=== PATIENT | female | born 1995 | race Two or more races ===

== ENCOUNTER 2024-03-05 08:52 | Outpatient (AMB) | payer OTHER, SELFPAY ==
--- NOTE | 2024-03-05 08:53 | A.OFFPC_ITS ---
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 Deicer Element Winder Machine Name: [id number] Accompanied by: Self / Same As Patient Allergies No Known Allergies Allergy (Verified 03/05/24 09:05) Medication List - Last Reconciled 03/05/24 by AMBERLY Concepcion No Known Home Meds Tobacco use date assessed: 03/05/24 Dental Screening Dental Screen Date: 03/05/24 Did you have a dental visit in the last 12 months?: No Did you have a dental problem in the last 6 months where you did not have access to dental care?: No Was dental information given to patient?: No HPI establish care HPI Details Previous PCP:[place] Last visit:October PE: October in [place], she had an appt scheduled November 23 in there, but she came here Specialist: n/a OBGYN: needs referral Past medical history: goiter 2021 Medications: n/a Family HX: n/a The patient is a 28-year-old female that is presenting to establish care She denies any significant past medical history Reports that she is here because of the swelling in her neck Problem: Goiter:Patient reports that the swelling in her neck started in 2021 after giving to her daughter She denies any discomfort to the swelling in her neck but reports that when she lays down it impacts her breathing and causes her to have headaches Denies difficulty swallowing or change in her voice will order a thyroid ultrasound brandi and an endocrine referral urgently Will order blood works as well follow up in 1 month: to address goiter/endocrine-to see what their recommendations are [facility] Social History Housing: Apartment Patient Tobacco Use Status: Never used Tobacco e-Cigarette/Vaping Use: Never Used service: No Current occupational status: unemployed Current occupational exposures/hazards: No Cognitive needs: No Hearing needs: No Vision needs: No Questionnaire PHQ-9 Over the last 2 weeks, how often have you been bothered by any of the following problems? 1. Little interest or pleasure in doing things: not at all 2. Feeling down, depressed, or hopeless: not at all 3. Trouble falling or staying asleep, or sleeping too much: not at all 4. Feeling tired or having little energy: not at all 5. Poor appetite or overeating: not at all 6. Feeling bad about yourself - or that you are a failure or have let yourself or your family down: not at all 7. Trouble concentrating on things, such as reading the newspaper or watching television: not at all 8. Moving or speaking so slowly that other people could have noticed. Or the opposite - being so fidgety or restless that you have been moving around a lot more than usual: not at all 9. Thoughts that you would be better off or of hurting yourself in some way: not at all Total score: 0 Depression Screening Interpretation: Negative Depression Screening Done: Yes 40800 - PHQ-9 Billing: Yes Source: Developed by Drs. Low Draper, Ann Newsome, Te Dugan and colleagues, with an educational jim from [employer]. Thrive Questionnaire Date Thrive assessed: 03/05/24 I am a: Patient What is your living situation today?: I have a steady place to live Within the past 12 months, did the food you bought not last and you didn't have the money to get more?: I choose not to answer this question Within the past 12 months, did you worry whether your food would run out before you got money to buy more?: I choose not to answer this question Do you have trouble paying for medicines?: I choose not to answer this question Do you have trouble getting transportation to medical appointments?: I choose not to answer this question Do you have trouble paying your heating and electricity bill?: I choose not to answer this question Do you have trouble taking care of your child, family member or friend?: I choose not to answer this question Do you have trouble with day-to-day activities such as bathing, preparing meals, shopping, managing finances, etc.?: I choose not to answer this question Are you currently unemployed and looking for a job?: I choose not to answer this question Are you interested in more education?: I choose not to answer this question Please select the resources that you would like help with: None Currently or been in a relationship where the following occur: I choose not to answer THRIVE Score: 0 AUDIT C Alcohol Use Questionnaire (AUDIT-C) 1. How often do you have a drink containing alcohol?: Never 3. How often do you have six or more drinks on one occasion?: Never Total Score: 0 SHEILA-7 AMB Questionnaire SHEILA-7 Feeling nervous, anxious, or on edge: 0 = Not at all Not being able to stop or control worryin = Not at all Worrying too much about different things: 0 = Not at all Trouble relaxin = Not at all Being so restless that it is hard to sit still: 0 = Not at all Becoming easily annoyed or irritable: 0 = Not at all Feeling afraid as if something awful might happen: 0 = Not at all Total SHEILA-7 score (0-4 normal; 5-9 mild; 10-14 moderate; 15-21 severe): 0 Source: Developed by Drs. Low Draper, Ann Newsome, Te Dugan and colleagues, with an educational jim from [employer]. SHEILA-7 Assessment Billing SHEILA-7 Assessment Tool: SHEILA-7 Assessment 91435 Review of Systems Const Details: Denies chills, Denies fatigue, Denies fever(s), reports headache with laying down(s) and Denies weakness HEENT Denies change in vision, Denies dizziness, reports headaches when laying down (s), Denies hearing loss, Denies nasal congestion, Denies sinus pain, Denies sinus pressure and Denies sore throat Card Denies chest pain, Denies lightheadedness, Denies dyspnea and Denies other (palpitations) Resp other: + sob with laying down Denies cough, Denies dyspnea and Denies wheezing GI Denies abdominal pain, Denies melena, Denies hematochezia, Denies change in bowel habits, Denies dyspepsia and Denies nausea Denies hematuria and Denies dysuria Musc Denies abnormal gait, Denies myalgias, Denies arthralgias, Denies numbness and Denies tingling Skin/Breast Denies rash, Denies unusual bruising and Denies wounds Neuro Denies abnormal gait, Denies dizziness, Denies headache(s), Denies memory loss, Denies numbness, Denies Sensory deficit (Neuro), Denies tingling and Denies weakness Psych Denies anxiety, Denies depression and Denies memory loss Endo Denies cold intolerance, Denies fatigue, Denies heat intolerance, Denies polydipsia and Denies polyuria Malcolm/Lymph Denies easy bleeding and Denies easy bruising Aller/Immun Denies wheezing Physical exam (Primary Care) Vital Signs: Last Vital Signs Temp 97.4 F 03/05/24 08:56 Pulse 76 03/05/24 08:56 BP 100/64 03/05/24 08:56 Pulse Ox 99 03/05/24 08:56 Oxygen Delivery Method Room Air 03/05/24 08:56 BMI result Body Mass Index 34.2 Tobacco/Smoking Status: Tobacco use Status Tobacco use date assessed 03/05/24 03/05/24 09:03 Patient Tobacco Use Status Never used Tobacco 03/05/24 09:03 e-Cigarette/Vaping Use Never Used 03/05/24 09:03 PHQ-9: PHQ-9 Score PHQ-9: Total score 0 03/05/24 09:03 Depression Screening Interpretation: Negative Thrive Assessment: Date of Thrive Assessment Date Thrive assessed 03/05/24 03/05/24 09:03 Currently or been in a relationship where the following occur: I choose not to answer Const Other: General: no acute distress, well developed, alert and awake Nutritional Appearance: well nourished Orientation/consciousness: patient oriented x3 HENMT Head: Yes normocephalic and Yes atraumatic Ears: hearing grossly normal bilaterally and TM's normal bilaterally General nose exam: Normal external nose present and Normal nares present Mouth: Normal oral and palatal mucosa present and moist mucous membranes Teeth and gingiva: dentition normal Throat: Yes oropharynx normal Eyes Pupils: Equal, round and reactive pupils present and Pupil accommodation reflex normal EOM: EOMs intact bilaterally Neck Neck: Yes normal visual inspection, Yes no lymphadenopathy and Yes trachea midline Thyroid: +large goiter Carotids: no bruits Lymphatic: no lymphadenopathy noted Chest Chest palpation & inspection: normal inspection of the chest Resp Effort & Inspection: normal respiratory effort Auscultation: clear to auscultation bilaterally Cardio Rate: regular rate Rhythm: regular rhythm Heart sounds: S1 normal heart sound present, S2 normal heart sound present, no gallops, no murmurs and no rubs Bruits: no abdominal aortic bruits and no carotid bruits GI Palpation (GI): No Abdominal aortic bruit present, abdomen rounded, soft and nontender to palpation, and No Rebound tenderness present Auscultation: normal bowel sounds General: Yes no CVA tenderness Back/Spine/Pelvis Back: no CVA tenderness Cervical Spine: cervical ROM normal and No Cervical spine tenderness Thoracic/Lumbar Spine: thoraco-lumbar ROM normal, No pain with thoraco-lumbar ROM, No thoracic spinal tenderness and No lumbar spinal tenderness Skin General: warm and dry. Normal skin color. Normal skin turgor Lesions: no lesions Rashes: no rashes Trauma: no lacerations or abrasions Wounds: no wounds Nails: normal Neuro General: patient oriented x3, gait normal Cranial nerves: Yes Equal, round and reactive pupils present Cognition (Neuro): normal cognition Gait exam (Neuro): Normal gait present Motor exam (neuro): 5/5 motor strength present throughout Extrem General: Yes normal to inspection, No edema and No calf tenderness Psych Appearance: grossly normal Affect: normal affect Attitude: cooperative Thought process: Normal thought process present Coding Level of Care Code New Pt Level 4 (53699) Diagnoses Goiter E04.9 Nonintractable headache, unspecified chronicity pattern, unspecified headache type R51.9 Headache type: unspecified Headache chronicity pattern: unspecified pattern Intractability: not intractable Dyspnea, unspecified type R06.00 Dyspnea type: unspecified Additional Codes PHQ-9 - 82500 - PHQ-9 Billing: Yes ([id number]) SHEILA-7 Assessment Billing - SHEILA-7 Assessment Tool: SHEILA-7 Assessment 02676 ([id number]) Time Spent (min) 28 Assessment & Plan Assessment & Plan (1) Goiter: Code(s): E04.9 - Nontoxic goiter, unspecified Category: Medical Plan: Goiter: Reports that this has been present since 2021 after given to her daughter Reports that the swelling in her neck adds pressure to her neck while laying down. This affects her breathing in causing her to have a headache --ordered thyroid function tests and an ultrasound of the thyroid and the patient was given an urgent referral to Endocrine (2) Headache: Code(s): R51.9 - Headache, unspecified Category: Medical Qualifiers: Headache type: unspecified Headache chronicity pattern: unspecified pattern Intractability: not intractable Qualified Code(s): R51.9 - Headache, unspecified Plan: Headache when laying flat, resolves when she is sitting up encouraged the patient elevate the head with pillows when resting (3) Dyspnea: Code(s): R06.00 - Dyspnea, unspecified Category: Medical Qualifiers: Dyspnea type: unspecified Qualified Code(s): R06.00 - Dyspnea, unspecified Plan: reports difficult breathing when laying flat. The patient has a goiter than is putting pressure on her neck Encouraged to elevate her head pillows when laying down Plan The patient is a follow up in a month or sooner for any concerns Orders: Orders Vitamin D 25-OH Total Today E04.9 - Nontoxic goiter, unspecified, Z00.00 - Encounter for general adult medical examination without abnormal findings US thyroid Today E04.9 - Nontoxic goiter, unspecified, Z00.00 - Encounter for general adult medical examination without abnormal findings Complete Blood Count Auto Diff Today E04.9 - Nontoxic goiter, unspecified, Z00.00 - Encounter for general adult medical examination without abnormal findings Comprehensive Enterprise. Panel Fast Today E04.9 - Nontoxic goiter, unspecified, Z00.00 - Encounter for general adult medical examination without abnormal findings Lipid Panel Today E04.9 - Nontoxic goiter, unspecified, Z00.00 - Encounter for general adult medical examination without abnormal findings Glucose Fasting Today E04.9 - Nontoxic goiter, unspecified, Z00.00 - Encounter for general adult medical examination without abnormal findings UA CC w/rflx Micro + Cult Today E04.9 - Nontoxic goiter, unspecified, Z00.00 - Encounter for general adult medical examination without abnormal findings TSH reflex Free T4 Today E04.9 - Nontoxic goiter, unspecified, Z00.00 - Encounter for general adult medical examination without abnormal findings Free T4 (Free Thyroxine) Today E04.9 - Nontoxic goiter, unspecified, Z00.00 - Encounter for general adult medical examination without abnormal findings Referrals Endocrinology Referral E04.9 - Nontoxic goiter, unspecified 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
[2024-03-05 08:56] VITALS: BP 100/64; PULSE 76; TEMP 36.3; O2SAT 99; BMI 34.2
== END 2024-03-05 09:43 | disposition home or self-care (01) ==
DX: E04.9 Nontoxic goiter, unspecified (principal); R51.9 Headache, unspecified; R06.00 Dyspnea, unspecified

== ENCOUNTER 2024-03-05 08:52 | Outpatient (REF) | payer OTHER, SELFPAY ==
[2024-03-05 10:15] LABS: MANUAL DIFF FLAG NO
[2024-03-05 11:07] LABS: Basophils Absolute Auto 0.1 X10*3/uL (0.0-0.2); Basophils Percent Auto 1.4 % (0-2); Eosinophils Absolute Auto 0.2 X10*3/uL (0.0-0.4); Hematocrit 42.2 % (37.0-47.0); Hemoglobin 13.7 g/dl (12.0-16.0); Lymphocytes Absolute Auto 2.5 X10*3/uL (1.2-4.9); Lymphocytes Percent Auto 49.9 % (20-40); Mean Corpuscular HGB Conc 32.5 g/dl (31.0-35.0); Mean Corpuscular Hemoglobin 26.8 pg (27.0-33.0); Mean Corpuscular Volume 82.4 fL (80.0-98.0); Mean Platelet Volume 10.9 fL (9.4-12.3); Monocytes Absolute Auto 0.4 X10*3/uL (0.1-1.2); Monocytes Percent Auto 7.6 % (2-11); Neutrophils Absolute Auto 1.8 x10*3/uL (2.0-8.3); Neutrophils Percent Auto 37.1 % (45-73); Platelet Count 234 X10*3/uL (160-400); Red Blood Count 5.12 X10*6/uL (4.20-5.50); Red Cell Distribution Width 12.7 % (11.0-16.0)
[2024-03-05 11:18] LABS: Appearance Urine Cloudy; Color Urine Yellow; Glucose Urine UA Negative (Negative); Leukocyte Esterase Urine Negative (Negative); Nitrite Urine Negative (Negative); PH 6.5 (5.0-9.0); Specific Gravity - Urine 1.025 (1.005-1.025); Urine Blood Negative (Negative); Urine Ketones Negative (Negative); Urine Protein Negative (Neg-Trace)
[2024-03-05 11:49] LABS: Alanine Aminotransferase 28 U/L (0-31); Albumin Level 4.2 g/dL (3.5-5.0); Alkaline Phosphatase 65 U/L (39-117); Anion Gap 7 (12-20); Aspartate Amino Transferase 24 U/L (5-31); Bilirubin Total 0.3 mg/dL (0.0-1.0); Blood Urea Nitrogen 13 mg/dL (9-16); Calcium 9.8 mg/dL (8.4-10.2); Carbon Dioxide 28 mmol/L (22-29); Chloride 106 mmol/L (96-108); Cholesterol 124 mg/dL (<200); Estimated Glomerular Filt Rate > 60; Glucose Fasting 105 mg/dL (60-99); HDL Cholesterol 42 mg/dL (>40); LDL Cholesterol Calculated 69 mg/dL (<100); Sodium 137 mmol/L (135-145); Total Protein 7.8 g/dL (6.5-8.0); Triglycerides 69 mg/dL (<150)
[2024-03-05 11:58] LABS: Free T4 (Free Thyroxine) 0.99 ng/dL (0.71-1.85); TSH reflex Free T4 2.69 uIU/mL (0.32-4.0); Vitamin D 25-OH Total 22.9 ng/mL (>30)
== END 2024-03-05 08:53 | disposition home or self-care (01) ==
LOC: HO.LAB 08:52
DX: E04.9 Nontoxic goiter, unspecified (principal); R51.9 Headache, unspecified; R06.00 Dyspnea, unspecified; Z00.00 Encounter for general adult medical examination without abnormal findings
CPT/HCPCS: 36415; 80053; 80061; 81003; 82306; 84439; 84443; 85025; 96127; 99202

== ENCOUNTER 2024-03-21 15:48 | Outpatient (REF) | payer OTHER, SELFPAY | END 2024-03-21 15:49 | disposition home or self-care (01) | LOC: HO.US 15:48 | DX: E04.9 Nontoxic goiter, unspecified (principal) | CPT/HCPCS: 76536 ==

== ENCOUNTER → 2024-03-21 15:51 | Outpatient (BNV) | payer OTHER, SELFPAY | PROVIDERS: Visit Provider Radiology Diagnostic Radiology | DX: E04.9 Nontoxic goiter, unspecified (principal) | CPT/HCPCS: 76536 ==

== ENCOUNTER 2024-04-07 13:42 | Outpatient (AMB) | payer OTHER, SELFPAY ==
--- NOTE | 2024-04-07 14:27 | MHC.PC.OV ---
Vital Signs 04/07/24 14:28 Height 5 ft 8.11 in Weight 223 lb BMI 33.8 BP 110/70 Blood Pressure Location Lt brachial Position Sitting Pulse 87 Pulse Source Pulse Oximeter Temp 97.5 F Temp Source Temporal Artery Scan Pulse Oximetry (%) 97 Oxygen Delivery Method Room Air Intake Visit Reasons: goiter Intake Note: Patient is here to follow up on Goiter. Java Consultant Required: Yes Java Consultant Language: Maldivian Creole Java Consultant Name: Malissa ([id number]) Information Interpreted: non-clinical & clinical Environmental Web Crawler: Not Required per policy Accompanied by: Self / Same As Patient Allergies No Known Allergies Allergy (Verified 04/07/24 14:35) Medication List - Last Reconciled 04/07/24 by AMBERLY Concepcion No Known Home Meds Tobacco use date assessed: 04/07/24 Dental Screening Dental Screen Date: 03/05/24 HPI goiter HPI Details Patient is a 29-year-old patient Creole speaking female with a past medical history of goiter since 2021. 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 Grigsby was reached via [employer], and he gave the go ahead for the patient walk over to the office and make an appointment The patient reports that she has an headache since Sunday. The whole head and it causes her to have left eye pain, reports that she does not take medications, because when she goes to the pharmacy, they ask her for her papers-recommended ibuprofen, magnesium and b2 vitamins 400mg otc to the patient [facility] Surgical History History of 2 sections Social History Housing: Apartment Patient Tobacco Use Status: Never used Tobacco e-Cigarette/Vaping Use: Never Used Second Hand Smoke Exposure: No service: No Current occupational status: unemployed Current occupational exposures/hazards: No Cognitive needs: No Hearing needs: No Vision needs: No Questionnaire Thrive Questionnaire Date Thrive assessed: 03/05/24 I am a: Patient What is your living situation today?: I have a steady place to live Within the past 12 months, did the food you bought not last and you didn't have the money to get more?: I choose not to answer this question Within the past 12 months, did you worry whether your food would run out before you got money to buy more?: I choose not to answer this question Do you have trouble paying for medicines?: I choose not to answer this question Do you have trouble getting transportation to medical appointments?: I choose not to answer this question Do you have trouble paying your heating and electricity bill?: I choose not to answer this question Do you have trouble taking care of your child, family member or friend?: I choose not to answer this question Do you have trouble with day-to-day activities such as bathing, preparing meals, shopping, managing finances, etc.?: I choose not to answer this question Are you currently unemployed and looking for a job?: I choose not to answer this question Are you interested in more education?: I choose not to answer this question Please select the resources that you would like help with: None Currently or been in a relationship where the following occur: I choose not to answer THRIVE Score: 0 SHEILA-7 AMB Questionnaire SHEILA-7 Date SHEILA - 7 assessed: 03/05/24 Source: Developed by Drs. Low Draper, Ann Newsome, Te Dugan and colleagues, with an educational jim from [employer]. Review of Systems Const Details: Denies chills, Denies fatigue, Denies fever(s), + headache(reports that she has this for years) (s) and Denies weakness HEENT Denies change in vision, Denies dizziness, Denies hearing loss, Denies nasal congestion, Denies sinus pain, Denies sinus pressure and Denies sore throat Card Denies chest pain, Denies lightheadedness, Denies dyspnea and Denies other (palpitations) Resp Denies cough, Denies dyspnea and Denies wheezing GI Denies abdominal pain, Denies melena, Denies hematochezia, Denies change in bowel habits, Denies dyspepsia and Denies nausea Denies hematuria and Denies dysuria Musc Denies abnormal gait, Denies myalgias, Denies arthralgias, Denies numbness and Denies tingling Skin/Breast Denies rash, Denies unusual bruising and Denies wounds Neuro Denies abnormal gait, Denies dizziness, Denies headache(s), Denies memory loss, Denies numbness, Denies Sensory deficit (Neuro), Denies tingling and Denies weakness Psych Denies anxiety, Denies depression and Denies memory loss Endo Denies cold intolerance, Denies fatigue, Denies heat intolerance, Denies polydipsia and Denies polyuria Malcolm/Lymph Denies easy bleeding and Denies easy bruising Aller/Immun Denies wheezing Physical exam (Primary Care) Vital Signs: Last Vital Signs Temp 97.5 F 04/07/24 14:28 Pulse 87 04/07/24 14:28 BP 110/70 04/07/24 14:28 Pulse Ox 97 04/07/24 14:28 Oxygen Delivery Method Room Air 04/07/24 14:28 BMI result Body Mass Index 33.8 Tobacco/Smoking Status: Tobacco use Status Tobacco use date assessed 04/07/24 04/07/24 14:35 Patient Tobacco Use Status Never used Tobacco 04/07/24 14:35 e-Cigarette/Vaping Use Never Used 04/07/24 14:35 Thrive Assessment: Date of Thrive Assessment Date Thrive assessed 03/05/24 04/07/24 14:35 Currently or been in a relationship where the following occur: I choose not to answer Const Other: General: no acute distress, well developed, alert and awake Nutritional Appearance: well nourished Orientation/consciousness: [facility]: Yes normocephalic and Yes atraumatic Ears: hearing grossly normal bilaterally and TM's normal bilaterally General nose exam: Normal external nose present and Normal nares present Mouth: Normal oral and palatal mucosa present and moist mucous membranes Teeth and gingiva: dentition normal Throat: Yes oropharynx normal Eyes Pupils: Equal, round and reactive pupils present and Pupil accommodation reflex normal EOM: EOMs intact bilaterally Neck Neck: Yes normal visual inspection, Yes no lymphadenopathy Thyroid: large groiter Lymphatic: no lymphadenopathy noted Resp Effort & Inspection: normal respiratory effort Auscultation: clear to auscultation bilaterally Cardio Rate: regular rate Rhythm: regular rhythm Heart sounds: S1 normal heart sound present, S2 normal heart sound present, no gallops, no murmurs and no rubs GI Palpation (GI): abdomen is soft and nontender to palpation Auscultation: normal bowel sounds General: Yes no CVA tenderness Back/Spine/Pelvis Back: no CVA tenderness Cervical Spine: cervical ROM normal and No Cervical spine tenderness Thoracic/Lumbar Spine: lumbar tenderness to palpation Skin General: warm and dry. Normal skin color. Normal skin turgor Lesions: no lesions Wounds: no wounds Nails: normal Neuro General: patient oriented x3, gait normal Cranial nerves: Yes Equal, round and reactive pupils present Cognition (Neuro): normal cognition Gait exam (Neuro): Normal gait present Extrem General: Yes normal to inspection, No edema and No calf tenderness Psych Appearance: grossly normal Affect: normal affect Attitude: cooperative Thought process: Normal thought process present Results Reviewed Results Reviewed: Laboratory Tests 03/05/24 03/05/24 10:09 10:14 WBC 5.0 RBC 5.12 Hgb 13.7 Hct 42.2 Plt Count 234 Sodium 137 Potassium 4.0 Chloride 106 Carbon Dioxide 28 BUN 13 Creatinine 0.74 Estimated GFR > 60 Fasting Glucose 105 H AST 24 ALT 28 Alkaline Phosphatase 65 Triglycerides 69 Cholesterol 124 LDL Cholesterol, Calc 69 HDL Cholesterol 42 TSH 2.69 Free T4 0.99 Urine Color Yellow Urine Appearance Cloudy Urine pH 6.5 Ur Specific [place] 1.025 Urine Protein Negative Urine Glucose (UA) Negative Urine Ketones Negative Urine Blood Negative Urine Nitrite Negative Ur Leukocyte Esterase Negative Coding Level of Care Code Est Pt Level 4 (54928) Diagnoses Goiter E04.9 Nonintractable headache, unspecified chronicity pattern, unspecified headache type R51.9 Headache type: unspecified Headache chronicity pattern: unspecified pattern Intractability: not intractable Dyspnea, unspecified type R06.00 Dyspnea type: unspecified Time Spent (min) 42 Assessment & Plan Assessment & Plan (1) Goiter: Code(s): E04.9 - Nontoxic goiter, unspecified Category: Medical Plan: Goiter: Reports that this has been present since 2021 after given to her daughter Reports that the swelling in her neck adds pressure to her neck while laying down. This affects her breathing in causing her to have a headache Thyroid ultrasound ordered that showed a large goiter with 2 nodules. patient awaiting appointment with endocrinology (2) Headache: Code(s): R51.9 - Headache, unspecified Category: Medical Qualifiers: Headache type: unspecified Headache chronicity pattern: unspecified pattern Intractability: not intractable Qualified Code(s): R51.9 - Headache, unspecified Plan: Headache when laying flat, resolves when she is sitting up encouraged the patient elevate the head with pillows when resting The patient reports that the pain is across the whole head and it is causing her to have left eye pain, reports that she does not take any medications, because when she goes to the pharmacy, they ask her for her papers/identifications-recommended ibuprofen, magnesium and b2 vitamins 400mg otc to the patient (3) Dyspnea: Code(s): R06.00 - Dyspnea, unspecified Category: Medical Qualifiers: Dyspnea type: unspecified Qualified Code(s): R06.00 - Dyspnea, unspecified Plan: reports difficult breathing when laying flat. The patient has a goiter than is putting pressure on her neck Encouraged to elevate her head pillows when laying down Plan The patient is a follow up in a month or sooner for any concerns
[2024-04-07 14:28] VITALS: BP 110/70; PULSE 87; TEMP 36.4; O2SAT 97; BMI 33.8
== END 2024-04-07 15:24 | disposition home or self-care (01) ==
DX: E04.9 Nontoxic goiter, unspecified (principal); R51.9 Headache, unspecified; R06.00 Dyspnea, unspecified

== ENCOUNTER → 2024-04-07 13:42 | Outpatient (BNVA) | payer OTHER, SELFPAY | DX: E04.9 Nontoxic goiter, unspecified (principal); R51.9 Headache, unspecified; R06.00 Dyspnea, unspecified | CPT/HCPCS: 99212 ==

== ENCOUNTER 2024-05-05 13:39 | Outpatient (AMB) | payer OTHER, SELFPAY ==
[2024-05-05 13:46] VITALS: BP 80/64; PULSE 99; O2SAT 100; BMI 42.3
--- NOTE | 2024-05-05 13:46 | MHC.OFFVIS ---
Vital Signs 05/05/24 13:46 Height 5 ft 11.65 in Weight 308 lb 10.354 oz BMI 42.3 BP 80/64 L Blood Pressure Location Rt brachial Position Sitting Pulse 99 Pulse Source Pulse Oximeter Pulse Oximetry (%) 100 Intake Visit Reasons: Nontoxic goiter, unspecified Intake Note: New patient present today for Nontoxic goiter, unspecified. Manager Auto Name: [id number] Information Interpreted: non-clinical & clinical Accompanied by: Self / Same As Patient Allergies No Known Allergies Allergy (Verified 04/07/24 14:35) Medication List - Last Reconciled 05/05/24 by Kortney Wolfe MD No Known Home Meds HPI Comments Details: 29-year-old female here today for initial evaluation of large goiter. Ultrasound thyroid April 2024, I reviewed the images myself which showed right lower 1.2 cm solid, isoechoic nodule, all of the isthmus and left thyroid is taken up by large goiter. 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 thinks most of the enlargement happened over the last 5 years. Reports trouble breathing when she lays down flat. Does report choking sensation with laying flat. No changes in voice. Patient currently denies heat or cold intolerance, diarrhea or constipation, hair loss, palpitation, anxiety, weight changes, mood changes, low energy, changes in appearance of eyes or vision changes, tremors, increased diaphoresis or dry skin. ? Patient denies any history of childhood neck radiation. Denies having ever used lithium, amiodarone or biotin supplements. Patient denies any family history of thyroid cancer or thyroid disease. Physical exam General: sitting comfortably in no acute distress HEENT: normocephalic/atraumatic Neck: large goiter , pembertons sign positive Cardiac: normal heart sounds Pulm: normal breath sounds B/L, no added breath sounds Abd: not distended, no tenderness Extremities: no edema, no signs of myxedema Laboratory Tests 03/05/24 10:14 TSH 2.69 Free T4 0.99 US THYROID 04/18/24 CLINICAL INFORMATION: Nontoxic goiter COMPARISON: None available. TECHNIQUE: Linear transducer grayscale and color Doppler examination with attention to the region of the thyroid. FINDINGS: SIZE: Measurements of the thyroid lobes and nodules are given in sagittal, anteroposterior and transverse dimensions respectively. Right Thyroid Lobe: 6122.6 x 1.9 cm, volume 16 mL. Parenchyma: The gland echotexture is heterogeneous. Thyroid vascularity is hypervascular. Left Thyroid Lobe: The left lobe and isthmus is enlarged and difficult to differentiate the 2. There is diffusely heterogeneous as well. Estimated total number of nodules greater than or equal to 1 cm one: . Hedis Registered Nurse Rn nodules are described as follows: 1. Location: Right mid pole. Size: 0.5 x 0.5 x 0.6 cm, volume 0.076 mL. Nodule characteristics: Composition: Mixed cystic and solid (1). Echogenicity: Hyperechoic (1). Shape: Wider Margins: Smooth (0). Echogenic Foci: None (0). ACR TI-RADS total points: 3 ACR TI-RADS category: 3 2. Location: Right lower pole. Size: 1.2 x 1.1 x 1.0 cm, volume 0.7 mL. Nodule characteristics: Composition: Solid (2). Echogenicity: Isoechoic (1). Shape: Tolerated and wider 1). Margins: Smooth (0). Echogenic Foci: None (0). ACR TI-RADS total points: 6 ACR TI-RADS category: 4 NODES: No lymphadenopathy is seen in the tissue surrounding the thyroid gland. US/US thyroid IMPRESSION: Enlarged heterogeneous thyroid gland consistent with goiter. The left thyroid lobe and isthmus cannot be or measured but enlarged. There are nodules in the right lobe. The lower pole nodule is solid and mildly suspicious based on ACR TI-RADS category. Recommend ultrasound follow-up in one year [facility] Medical History (Updated 05/05/24 @ 13:54 by Ophelia Bah CMA) section wound seroma, Surgical History History of 2 sections Social History Housing: Apartment Patient Tobacco Use Status: Never used Tobacco e-Cigarette/Vaping Use: Never Used Second Hand Smoke Exposure: No service: No Current occupational status: unemployed Current occupational exposures/hazards: No Cognitive needs: No Hearing needs: No Vision needs: No Physical Exam Vital Signs: Last Vital Signs Pulse 99 05/05/24 13:46 BP 80/64 L 05/05/24 13:46 Pulse Ox 100 05/05/24 13:46 BMI result Body Mass Index 42.3 Assessment & Plan Assessment & Plan (1) Goiter: Code(s): E04.9 - Nontoxic goiter, unspecified Category: Medical Plan: 29-year-old female here today for initial evaluation of large goiter. Ultrasound thyroid April 2024, I reviewed the images myself which showed right lower 1.2 cm solid, isoechoic nodule, all of the isthmus and left thyroid is taken up by large goiter. She has compressive symptoms with significant choking and trouble breathing when she lays down flat. Also has positive [place] sign on exam today. She is not a very good historian, also there is a language barrier however she feels most of the enlargement happened over the last 5 years. We will refer her for surgical evaluation as given the degree of compressive symptoms in the size of her goiter this needs to come out. I will also order a CT soft tissue scan given compressive symptoms. Plan: -ordered CT soft tissue neck with contrast -placed referral for total thyroidectomy to Dr. Rohit Ly at [facility] -follow up in 3 months Plan I spent 45 minutes in reviewing the record, seeing the patient and documenting in the medical record. Orders: Orders CT soft tissue neck wo/w IVcon Today E04.9 - Nontoxic goiter, unspecified Referrals General Surgery Referral E04.9 - Nontoxic goiter, unspecified Patient Instructions: We are referring you to Dr. Rohit Ly's office from [facility] for surgical evaluation If you dont hear from anyone in 2 weeks call our office Do CT scan N ap refere w abhilash medina [facility] arturo mindyalyasyon karen. Si w sabiha barajas nan 2 hansa?n rele biwo nou an F? CT eskan? Coding Level of Care Code New Pt Level 4 (29647) Diagnoses Goiter E04.9 Time Spent (min) 45
== END 2024-05-05 14:19 | disposition home or self-care (01) ==
LOC: HO.ENCR 13:40
PROVIDERS: Visit Provider Student in an Organized Health Care Education/Training Program
DX: E04.9 Nontoxic goiter, unspecified (principal)
CPT/HCPCS: 99204

== ENCOUNTER → 2024-05-05 13:39 | Outpatient (BNVA) | payer OTHER, SELFPAY | PROVIDERS: Visit Provider Student in an Organized Health Care Education/Training Program | DX: E04.9 Nontoxic goiter, unspecified (principal) | CPT/HCPCS: 99202 ==

== ENCOUNTER 2024-05-06 13:44 | Outpatient (AMB) | payer OTHER, SELFPAY ==
[2024-05-06 14:01] VITALS: BP 114/76; PULSE 96; TEMP 37.4; O2SAT 97; BMI 31.7
--- NOTE | 2024-05-06 14:01 | A.OFFPC_ITS ---
Vital Signs 05/06/24 14:01 Height 5 ft 11 in Weight 227 lb 3.2 oz BMI 31.7 BP 114/76 Blood Pressure Location Lt brachial Position Sitting Pulse 96 Pulse Source Pulse Oximeter Temp 99.4 F Temp Source Oral Pulse Oximetry (%) 97 Oxygen Delivery Method Room Air Intake Visit Reasons: 1 month Physical Science Technician Required: Yes Physical Science Technician Language: Jen Olivia Physical Science Technician Name: Used tablet- [employer] [id number] Accompanied by: Self / Same As Patient Allergies No Known Allergies Allergy (Verified 05/06/24 14:28) Medication List - Last Reconciled 05/06/24 by AMBERLY Concepcion No Known Home Meds Tobacco use date assessed: 05/06/24 Dental Screening Dental Screen Date: 05/06/24 Did you have a dental visit in the last 12 months?: No Did you have a dental problem in the last 6 months where you did not have access to dental care?: No HPI 1 month HPI Details The patient is 29 year old Haitain creole speaking female presenting for follow up appt regarding her goiter. 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 [employer] Reports that she is still feeling he sob with when she put her head down due to her enlarge thyroid gland The patient reports that she was seen by endocrinology and they recommended surgery The patient would like to know if there is any pills she could take instead of having a surgery Reports that she has her baby to cared for and she cannot survive without working Denies chest pain, heart palpitation or dizziness Denies abdominal pain or change in bowel habits Reports that she has rashes in her groin areas [facility] Medical History (Updated 05/06/24 @ 14:48 by AMBERLY Concepcion) section wound seroma, Surgical History History of 2 sections Social History Housing: Apartment Patient Tobacco Use Status: Never used Tobacco e-Cigarette/Vaping Use: Never Used Second Hand Smoke Exposure: No service: No Current occupational status: unemployed Current occupational exposures/hazards: No Cognitive needs: No Hearing needs: No Vision needs: No Female Reproductive History Menstrual Duration of menses: 3-5 days Date of last menstrual period: 04/26/24 Questionnaire PHQ-9 Over the last 2 weeks, how often have you been bothered by any of the following problems? 1. Little interest or pleasure in doing things: not at all 2. Feeling down, depressed, or hopeless: not at all 3. Trouble falling or staying asleep, or sleeping too much: not at all 4. Feeling tired or having little energy: not at all 5. Poor appetite or overeating: not at all 6. Feeling bad about yourself - or that you are a failure or have let yourself or your family down: not at all 7. Trouble concentrating on things, such as reading the newspaper or watching television: not at all 8. Moving or speaking so slowly that other people could have noticed. Or the opposite - being so fidgety or restless that you have been moving around a lot more than usual: not at all 9. Thoughts that you would be better off or of hurting yourself in some way: not at all Total score: 0 Depression Screening Interpretation: Negative Depression Screening Done: Yes Source: Developed by Drs. Low Draper, Ann Newsome, Te Dugan and colleagues, with an educational jim from [employer]. Thrive Questionnaire Date Thrive assessed: 05/06/24 I am a: Patient What is your living situation today?: I have a steady place to live Within the past 12 months, did the food you bought not last and you didn't have the money to get more?: I choose not to answer this question Within the past 12 months, did you worry whether your food would run out before you got money to buy more?: I choose not to answer this question Do you have trouble paying for medicines?: I choose not to answer this question Do you have trouble getting transportation to medical appointments?: I choose not to answer this question Do you have trouble paying your heating and electricity bill?: I choose not to answer this question Do you have trouble taking care of your child, family member or friend?: I choose not to answer this question Do you have trouble with day-to-day activities such as bathing, preparing meals, shopping, managing finances, etc.?: I choose not to answer this question Are you currently unemployed and looking for a job?: I choose not to answer this question Are you interested in more education?: I choose not to answer this question Please select the resources that you would like help with: None Currently or been in a relationship where the following occur: I choose not to answer THRIVE Score: 0 AUDIT C Alcohol Use Questionnaire (AUDIT-C) 1. How often do you have a drink containing alcohol?: Never 3. How often do you have six or more drinks on one occasion?: Never Total Score: 0 SHEILA-7 AMB Questionnaire SHEILA-7 Date SHEILA - 7 assessed: 05/06/24 Feeling nervous, anxious, or on edge: 0 = Not at all Not being able to stop or control worryin = Not at all Worrying too much about different things: 0 = Not at all Trouble relaxin = Not at all Being so restless that it is hard to sit still: 0 = Not at all Becoming easily annoyed or irritable: 0 = Not at all Feeling afraid as if something awful might happen: 0 = Not at all Total SHEILA-7 score (0-4 normal; 5-9 mild; 10-14 moderate; 15-21 severe): 0 Source: Developed by Drs. Low Draper, Ann Newsome, Te Dugan and colleagues, with an educational jim from [employer]. Review of Systems Const Reports headache(s) (intermittently) ENT Reports headache(s) (intermittently) and Denies sore throat Card Denies chest pain, Denies leg edema, Denies lightheadedness and Reports orthopnea Resp Denies cough and Denies hemoptysis GI Denies abdominal pain, Denies melena, Denies constipation, Denies diarrhea and Denies vomiting Denies urinary frequency, Denies dysuria and Denies urinary urgency Skin/Breast Reports rash (groin area) Neuro Reports headache(s) (intermittently) Physical exam (Primary Care) Vital Signs: Last Vital Signs Temp 99.4 F 05/06/24 14:01 Pulse 96 05/06/24 14:01 BP 114/76 05/06/24 14:01 Pulse Ox 97 05/06/24 14:01 Oxygen Delivery Method Room Air 05/06/24 14:01 BMI result Body Mass Index 31.7 Tobacco/Smoking Status: Tobacco use Status Tobacco use date assessed 05/06/24 05/06/24 14:12 Patient Tobacco Use Status Never used Tobacco 05/06/24 14:12 e-Cigarette/Vaping Use Never Used 05/06/24 14:12 PHQ-9: PHQ-9 Score PHQ-9: Total score 0 05/06/24 14:29 Depression Screening Interpretation: Negative Thrive Assessment: Date of Thrive Assessment Date Thrive assessed 05/06/24 05/06/24 14:12 Currently or been in a relationship where the following occur: I choose not to answer Const General: healthy appearing, no acute distress, alert and awake Nutritional Appearance: well nourished HENMT Ears: external ears normal General nose exam: Normal external nose present Eyes Conjunctivae: conjunctivae normal Sclerae: sclerae normal Neck Neck: Yes no lymphadenopathy and Yes no JVD Thyroid: Thyroid normal and lateral enlargement (large goiter) Carotids: no bruits Resp Effort & Inspection: normal respiratory effort and not tachypneic Auscultation: no crackles, no rales, no rhonchi and no wheezes Cardio Rate: regular rate Rhythm: regular rhythm Heart sounds: no murmurs and normal S1 and S2 GI Palpation (GI): Soft to palpation, nontender, no hepatomegaly and no splenomegaly Auscultation: normal bowel sounds Skin General skin exam: dry skin Rashes: rashes noted macules bilateral groin Coding Level of Care Code Est Pt Level 3 (00554) Diagnoses Goiter E04.9 Tinea cruris B35.6 Nonintractable headache, unspecified chronicity pattern, unspecified headache type R51.9 Headache type: unspecified Headache chronicity pattern: unspecified pattern Intractability: not intractable Dyspnea, unspecified type R06.00 Dyspnea type: unspecified Time Spent (min) 37 Assessment & Plan Assessment & Plan (1) Goiter: Code(s): E04.9 - Nontoxic goiter, unspecified Category: Medical Plan: 29-year-old female here today for initial evaluation of large goiter. Ultrasound thyroid April 2024, showed right lower 1.2 cm solid, isoechoic nodule, all of the isthmus and left thyroid is taken up by large goiter. She has compressive symptoms with significant choking and trouble breathing when she lays down flat. The patient was seen by Dr. Wolfe ([facility]), who referred for a total thyroidectomy (Dr. Rohit Ly at [facility]) (2) Tinea cruris: Code(s): B35.6 - Tinea cruris Category: Medical Plan: macular rash/moisture in bilateral groin area-consistent with fungal rash. Ketoconazole 2% topical BID ordered (3) Headache: Code(s): R51.9 - Headache, unspecified Category: Medical Qualifiers: Headache type: unspecified Headache chronicity pattern: unspecified pattern Intractability: not intractable Qualified Code(s): R51.9 - Headache, unspecified Plan: Headache when laying flat, resolves when she is sitting up encouraged the patient elevate the head with pillows when resting The patient reports that the pain is across the whole head and it is causing her to have left eye pain, reports that she does not take any medications, because when she goes to the pharmacy, they ask her for her papers/identifications- recommended ibuprofen, magnesium and b2 vitamins 400mg otc to the patient (4) Dyspnea: Code(s): R06.00 - Dyspnea, unspecified Category: Medical Qualifiers: Dyspnea type: unspecified Qualified Code(s): R06.00 - Dyspnea, unspecified Plan: reports difficult breathing when laying flat. The patient has a goiter than is putting pressure on her neck Encouraged to elevate her head pillows when lying down Medications: New ketoconazole 2% 1 appl topical BID 30 grams 2RF 30 days B35.6 - Tinea cruris
== END 2024-05-06 14:54 | disposition home or self-care (01) ==
LOC: HO.HMCH 13:45
DX: E04.9 Nontoxic goiter, unspecified (principal); B35.6 Tinea cruris; R51.9 Headache, unspecified; R06.00 Dyspnea, unspecified

== ENCOUNTER → 2024-05-06 13:44 | Outpatient (BNVA) | payer OTHER, SELFPAY | DX: E04.9 Nontoxic goiter, unspecified (principal); B35.6 Tinea cruris; R51.9 Headache, unspecified; R06.00 Dyspnea, unspecified | CPT/HCPCS: 99212 ==

== ENCOUNTER 2024-07-03 08:58 | Outpatient (REF) | payer OTHER, SELFPAY ==
--- NOTE | ~2024-07-03 | CT_ITS ---
CLINICAL HISTORY: E04.9 - Nontoxic goiter, unspecified --- Additional Notes or Special Instructions: has large goiter with compressive symptoms CT soft tissue neck with and without contrast Comparison: None Findings: The visualized intracranial contents are unremarkable. Pharyngeal mucosal space, parapharyngeal fat, prevertebral tissues, and epiglottis are within normal limits. Salivary glands are unremarkable. No sialoliths. Large heterogeneous mass of the central portion of the thyroid gland measures 6.7 x 8.7 x 6.7 cm in size. Additional small hypodense lesions of the thyroid gland. There is mild compression of the central airway by the mass. There is mass effect to the lateral structures of the neck including the carotid arteries and jugular veins. There are prominent bilateral cervical lymph nodes: Right level 2A 1 x 1.4 cm. There is a midline soft tissue nodule of the tongue base in the area of thyroglossal duct measuring 0.8 x 1.1 cm series 7, image 66. No consolidation at the lung apices. No acute fractures. IMPRESSION: Large heterogeneous mass of the thyroid gland with mass effect. Correlation with thyroid ultrasound and nuclear medicine thyroid scan are recommended. There is a soft tissue nodule of the tongue base in the area of the thyroglossal duct. Nonspecific bilateral cervical lymph nodes. This document has been electronically signed by: Richie Hernández MD on 07/03/2024 14:02:49
[2024-07-03] MEDS: iohexoL 350 MG/ML 100 ML INFUS..BTL IV (10:05)
== END 2024-07-03 08:59 | disposition home or self-care (01) ==
LOC: HO.CT 08:58
PROVIDERS: Visit Provider Student in an Organized Health Care Education/Training Program
DX: E04.9 Nontoxic goiter, unspecified (principal)
CPT/HCPCS: 70492; Q9967

== ENCOUNTER → 2024-07-03 08:59 | Outpatient (BNV) | payer OTHER, SELFPAY | PROVIDERS: Visit Provider Nuclear Medicine | DX: E04.9 Nontoxic goiter, unspecified (principal); R59.0 Localized enlarged lymph nodes | CPT/HCPCS: 70492 ==

== ENCOUNTER 2024-08-04 13:49 | Outpatient (AMB) | payer OTHER, SELFPAY ==
[2024-08-04 13:57] VITALS: BP 110/74; PULSE 88; O2SAT 95; BMI 31.7
--- NOTE | 2024-08-04 13:57 | A.OFFVIS_ITS ---
Vital Signs 3 08/04/24 13:57 Height 5 ft 11 in Weight 227 lb 4.745 oz BMI 31.7 BP 110/74 Blood Pressure Location Lt brachial Position Sitting Pulse 88 Pulse Source Pulse Oximeter Pulse Oximetry (%) 95 Oxygen Delivery Method Room Air Intake Visit Reasons: Nontoxic Goiter Intake Note: Patient present today for Nontoxic Goiter. Associate Professor Of Forestry Required: Yes Associate Professor Of Forestry Language: Jen Olivia Associate Professor Of Forestry Services: Associate Professor Of Forestry Offered & Declined Associate Professor Of Forestry Name: Tyler [id number] Information Interpreted: non-clinical & clinical Accompanied by: Daughter Allergies No Known Allergies Allergy (Verified 08/04/24 14:04) Medication List - Last Reconciled 08/04/24 by Kortney Wolfe MD ketoconazole 2% 1 appl topical BID 30 days HPI Comments Details: 29-year-old female here today for follow up of large goiter. HPI Ultrasound thyroid April 2024, I reviewed the images myself which showed right lower 1.2 cm solid, isoechoic nodule, all of the isthmus and left thyroid is taken up by large goiter. Very unclear with her history , she wasnt following an manager civil before, says at some point in [place] 5 years ago somebody evaluate her at her thyroid and told her that it was growing. thinks most of the enlargement happened over the last 5 years. Reports trouble breathing when she lays down flat. Does report choking sensation with laying flat. No changes in voice. Patient currently denies heat or cold intolerance, diarrhea or constipation, hair loss, palpitation, anxiety, weight changes, mood changes, low energy, changes in appearance of eyes or vision changes, tremors, increased diaphoresis or dry skin. ? Patient denies any history of childhood neck radiation. Denies having ever used lithium, amiodarone or biotin supplements. Patient denies any family history of thyroid cancer or thyroid disease. Normal TSH from February 2024. Interval history 08/04/2024 06/09/2024: Saw Dr. Chance at [facility] in [place], for surgical evaluation where he recommended surgical management for this goiter but prior to that he ordered a right inferior 1.2 cm nodule biopsy as well as a CT neck. 07/03/2024: CT soft tissue neck with and without contrast showed a large heterogenous mass of the central portion of the thyroid measuring 6.7 X8.7 X6.7 cm in size, additional small hypodense lesions of the thyroid gland. Mild compression of the central airway by the mass. Mass effect to the lateral structures of the neck including the carotid at reason jugular veins. Prominent bilateral cervical lymph nodes. Including right level 2A, 1 X1.4 cm. There is a midline soft tissue nodule of the tongue base in the area of the thyroglossal duct measuring 0.8 X1.1 cm. Physical exam General: sitting comfortably in no acute distress HEENT: normocephalic/atraumatic Neck: large goiter , pembertons sign positive Cardiac: normal heart sounds Pulm: normal breath sounds B/L, no added breath sounds Abd: not distended, no tenderness Extremities: no edema, no signs of myxedema Laboratory Tests 03/05/24 10:14 TSH 2.69 Free T4 0.99 US THYROID 04/18/24 CLINICAL INFORMATION: Nontoxic goiter COMPARISON: None available. TECHNIQUE: Linear transducer grayscale and color Doppler examination with attention to the region of the thyroid. FINDINGS: SIZE: Measurements of the thyroid lobes and nodules are given in sagittal, anteroposterior and transverse dimensions respectively. Right Thyroid Lobe: 6122.6 x 1.9 cm, volume 16 mL. Parenchyma: The gland echotexture is heterogeneous. Thyroid vascularity is hypervascular. Left Thyroid Lobe: The left lobe and isthmus is enlarged and difficult to differentiate the 2. There is diffusely heterogeneous as well. Estimated total number of nodules greater than or equal to 1 cm one: . Marketing Operations Specialist nodules are described as follows: 1. Location: Right mid pole. Size: 0.5 x 0.5 x 0.6 cm, volume 0.076 mL. Nodule characteristics: Composition: Mixed cystic and solid (1). Echogenicity: Hyperechoic (1). Shape: Wider Margins: Smooth (0). Echogenic Foci: None (0). ACR TI-RADS total points: 3 ACR TI-RADS category: 3 2. Location: Right lower pole. Size: 1.2 x 1.1 x 1.0 cm, volume 0.7 mL. Nodule characteristics: Composition: Solid (2). Echogenicity: Isoechoic (1). Shape: Tolerated and wider 1). Margins: Smooth (0). Echogenic Foci: None (0). ACR TI-RADS total points: 6 ACR TI-RADS category: 4 NODES: No lymphadenopathy is seen in the tissue surrounding the thyroid gland. US/US thyroid IMPRESSION: Enlarged heterogeneous thyroid gland consistent with goiter. The left thyroid lobe and isthmus cannot be or measured but enlarged. There are nodules in the right lobe. The lower pole nodule is solid and mildly suspicious based on ACR TI-RADS category. Recommend ultrasound follow-up in one year CLINICAL HISTORY: E04.9 - Nontoxic goiter, unspecified --- Additional Notes or Special Instructions: has large goiter with compressive symptoms 07/03/24 CT soft tissue neck with and without contrast Comparison: None Findings: The visualized intracranial contents are unremarkable. Pharyngeal mucosal space, parapharyngeal fat, prevertebral tissues, and epiglottis are within normal limits. Salivary glands are unremarkable. No sialoliths. Large heterogeneous mass of the central portion of the thyroid gland measures 6.7 x 8.7 x 6.7 cm in size. Additional small hypodense lesions of the thyroid gland. There is mild compression of the central airway by the mass. There is mass effect to the lateral structures of the neck including the carotid arteries and jugular veins. There are prominent bilateral cervical lymph nodes: Right level 2A 1 x 1.4 cm. There is a midline soft tissue nodule of the tongue base in the area of thyroglossal duct measuring 0.8 x 1.1 cm series 7, image 66. No consolidation at the lung apices. No acute fractures. IMPRESSION: Large heterogeneous mass of the thyroid gland with mass effect. Correlation with thyroid ultrasound and nuclear medicine thyroid scan are recommended. There is a soft tissue nodule of the tongue base in the area of the thyroglossal duct. Nonspecific bilateral cervical lymph nodes. This document has been electronically signed by: Richie Hernández MD on 07/03/2024 14:02:49 [facility] Medical History (Updated 08/04/24 @ 14:02 by Kortney Wolfe MD) Multinodular goiter (nontoxic) section wound seroma, Surgical History History of 2 sections Social History Housing: Apartment Patient Tobacco Use Status: Never used Tobacco e-Cigarette/Vaping Use: Never Used Second Hand Smoke Exposure: No service: No Current occupational status: unemployed Current occupational exposures/hazards: No Cognitive needs: No Hearing needs: No Vision needs: No Physical Exam Vital Signs: Last Vital Signs Pulse 88 08/04/24 13:57 BP 110/74 08/04/24 13:57 Pulse Ox 95 08/04/24 13:57 Oxygen Delivery Method Room Air 08/04/24 13:57 BMI result Body Mass Index 31.7 Assessment & Plan Assessment & Plan (1) Goiter: Code(s): E04.9 - Nontoxic goiter, unspecified Category: Medical Plan: 29-year-old female here today for follow up of large goiter. Ultrasound thyroid April 2024, I reviewed the images myself which showed right lower 1.2 cm solid, isoechoic nodule, all of the isthmus and left thyroid is taken up by large goiter. She has compressive symptoms with significant choking and trouble breathing when she lays down flat. Also has positive Christopher sign on exam today. She is not a very good historian, also there is a language barrier however she feels most of the enlargement happened over the last 5 years. 06/09/2024: Saw Dr. Chance at [facility] in [place], for surgical evaluation where he recommended surgical management for this goiter but prior to that he ordered a right inferior 1.2 cm nodule biopsy as well as a CT neck. She is very confused about this appointment in does not remember going to [place]? Then she finally recalls her appointment but says she never heard from them regarding the biopsy. I told her she probably missed the call as she is very confused about what is going on, however I gave her the number to call to follow up on her biopsy appointment and then follow up with them. 07/03/2024: CT soft tissue neck with and without contrast showed a large heterogenous mass of the central portion of the thyroid measuring 6.7 X8.7 X6.7 cm in size, additional small hypodense lesions of the thyroid gland. Mild compression of the central airway by the mass. Mass effect to the lateral structures of the neck including the carotid at reason jugular veins. Prominent bilateral cervical lymph nodes. Including right level 2A, 1 X1.4 cm. There is a midline soft tissue nodule of the tongue base in the area of the thyroglossal duct measuring 0.8 X1.1 cm. At this time she denies any trouble breathing except when she lifts flat. I discussed with her compressive symptoms on the neck and went to report to the emergency room. At this time she will be following up with [facility] for her biopsy and surgical management. I will send them the results of the CT scan. Post surgery she will need follow up with me. At this time we will put her on the schedule for 2 months because I am not sure when her follow up with [facility] we will be. But I told her to let us know if she has a surgical date and we can move her appointment accordingly. Plan: -patient given number to call [facility] -follow up in 2 months -ordered TSH and free T4 today (2) Multinodular goiter (nontoxic): Code(s): E04.2 - Nontoxic multinodular goiter Category: Medical Plan: See above Plan I spent 30 minutes in reviewing the record, seeing the patient and documenting in the medical record. Orders: Orders 2 Free T4 (Free Thyroxine) Today E04.2 - Nontoxic multinodular goiter Thyroid Stimulating Hormone Today E04.2 - Nontoxic multinodular goiter Patient Instructions: Please call the above number to find out when will your biopsy and follow up be Coding Level of Care Code Est Pt Level 4 (61690) Diagnoses Goiter E04.9 Multinodular goiter (nontoxic) E04.2 Time Spent (min) 30
== END 2024-08-04 14:32 | disposition home or self-care (01) ==
LOC: HO.ENCR 13:50
PROVIDERS: Visit Provider Student in an Organized Health Care Education/Training Program
DX: E04.9 Nontoxic goiter, unspecified (principal); E04.2 Nontoxic multinodular goiter
CPT/HCPCS: 99214

== ENCOUNTER → 2024-08-04 13:49 | Outpatient (BNVA) | payer OTHER, SELFPAY | PROVIDERS: Visit Provider Student in an Organized Health Care Education/Training Program | DX: E04.2 Nontoxic multinodular goiter (principal); E04.9 Nontoxic goiter, unspecified | CPT/HCPCS: 99212 ==

== ENCOUNTER 2024-09-05 14:20 | Outpatient (AMB) | payer OTHER, SELFPAY ==
--- NOTE | 2024-09-05 14:24 | MHC.PC.OV ---
Vital Signs 09/05/24 14:25 Height 5 ft 11 in Weight 231 lb 4 oz BMI 32.2 BP 126/90 H Blood Pressure Location Lt brachial Position Sitting Pulse 91 Pulse Source Pulse Oximeter Temp 98.4 F Temp Source Temporal Artery Scan Pulse Oximetry (%) 98 Oxygen Delivery Method Room Air Intake Visit Reasons: goiter Schedule Manager Required: Yes Schedule Manager Language: Jen Olivia Schedule Manager Name: [id number]/Kraig Accompanied by: Self / Same As Patient Allergies No Known Allergies Allergy (Verified 09/05/24 14:43) Medication List - Last Reconciled 09/05/24 by AMBERLY Concepcion ketoconazole 2% 1 appl topical BID 30 days Tobacco use date assessed: 09/05/24 Dental Screening Dental Screen Date: 09/05/24 Did you have a dental visit in the last 12 months?: No Did you have a dental problem in the last 6 months where you did not have access to dental care?: No Was dental information given to patient?: No HPI goiter HPI Details The patient is 29 year old Bhutanese speaking female with significant history of multiple nodular goiter Patient is presenting for follow up appointment The patient was referred to [place]ocrin[place]. [place] [facility] the patient and determine that she needed a thyroidectomy The patient was referred to an ENT in [place] at the [facility] She reports that she was supposed to have thyroids surgery in June and she missed this appointment Since, per patient she has been having trouble trying to reschedule Reports that the number she was given he has time she calls and says she needs an american sign language interpreter the phone hangs up or no one picks up the phone Unclear information given by patient-but she is having a language barrier and does not seems to understand fully what had been told Denies any new symptoms, she is still have difficulty breathing when lying flat She still experiencing fungal rash and was unable to obtained ordered cream from prior visit [facility] Medical History Multinodular goiter (nontoxic) section wound seroma, Surgical History History of 2 sections Social History Housing: Apartment Are you a primary zoo caretaker to a significant other at home: No Do you presently have visiting nurse or other home services: No Patient Tobacco Use Status: Never used Tobacco e-Cigarette/Vaping Use: Never Used Second Hand Smoke Exposure: No service: No Current occupational status: unemployed Current occupational exposures/hazards: No Cognitive needs: No Hearing needs: No Vision needs: No Questionnaire PHQ-9 Over the last 2 weeks, how often have you been bothered by any of the following problems? 1. Little interest or pleasure in doing things: not at all 2. Feeling down, depressed, or hopeless: not at all 3. Trouble falling or staying asleep, or sleeping too much: several days 4. Feeling tired or having little energy: not at all 5. Poor appetite or overeating: not at all 6. Feeling bad about yourself - or that you are a failure or have let yourself or your family down: not at all 7. Trouble concentrating on things, such as reading the newspaper or watching television: not at all 8. Moving or speaking so slowly that other people could have noticed. Or the opposite - being so fidgety or restless that you have been moving around a lot more than usual: not at all 9. Thoughts that you would be better off or of hurting yourself in some way: not at all Total score: 1 Depression Screening Interpretation: Negative Depression Screening Done: Yes Source: Developed by Drs. Low Draper, Ann Newsome, Te Dugan and colleagues, with an educational jim from [employer]. Thrive Questionnaire Date Thrive assessed: 09/05/24 I am a: Patient What is your living situation today?: I have a steady place to live Within the past 12 months, did the food you bought not last and you didn't have the money to get more?: I choose not to answer this question Within the past 12 months, did you worry whether your food would run out before you got money to buy more?: I choose not to answer this question Do you have trouble paying for medicines?: I choose not to answer this question Do you have trouble getting transportation to medical appointments?: I choose not to answer this question Do you have trouble paying your heating and electricity bill?: I choose not to answer this question Do you have trouble taking care of your child, family member or friend?: I choose not to answer this question Do you have trouble with day-to-day activities such as bathing, preparing meals, shopping, managing finances, etc.?: I choose not to answer this question Are you currently unemployed and looking for a job?: I choose not to answer this question Are you interested in more education?: I choose not to answer this question Please select the resources that you would like help with: None Currently or been in a relationship where the following occur: I choose not to answer THRIVE Score: 0 SHEILA-7 AMB Questionnaire SHEILA-7 Date SHEILA - 7 assessed: 09/05/24 Source: Developed by Drs. Low Draper, Ann Newsome, Te Dugan and colleagues, with an educational jim from [employer]. Review of Systems Const Denies body aches, Denies chills, Denies fever(s), Denies headache(s) and Denies poor appetite Eyes Reports no additional complaints ENT Denies dysphagia, Denies dizziness, Denies headache(s), Reports neck mass and Denies odynophagia Card Denies chest pain, Denies syncope, Denies edema, Denies irregular heart rhythm, Denies lightheadedness, Denies dyspnea and Reports orthopnea Resp Denies cough and Denies dyspnea GI Denies abdominal pain, Denies constipation, Denies dysphagia, Denies diarrhea, Denies nausea, Denies odynophagia and Denies vomiting Reports no additional complaints Musc Reports no additional complaints and Denies abnormal gait Skin/Breast Reports rash (rash in groin region) Neuro Denies abnormal gait, Denies dizziness, Denies syncope and Denies headache(s) Psych Reports no additional complaints Physical exam (Primary Care) Vital Signs: Last Vital Signs Temp 98.4 F 09/05/24 14:25 Pulse 91 09/05/24 14:25 BP 126/90 H 09/05/24 14:25 Pulse Ox 98 09/05/24 14:25 Oxygen Delivery Method Room Air 09/05/24 14:25 BMI result Body Mass Index 32.2 Tobacco/Smoking Status: Tobacco use Status Tobacco use date assessed 09/05/24 09/05/24 14:38 Patient Tobacco Use Status Never used Tobacco 09/05/24 14:38 e-Cigarette/Vaping Use Never Used 09/05/24 14:38 PHQ-9: PHQ-9 Score PHQ-9: Total score 1 09/05/24 15:17 Depression Screening Interpretation: Negative Thrive Assessment: Date of Thrive Assessment Date Thrive assessed 09/05/24 09/05/24 14:26 Currently or been in a relationship where the following occur: I choose not to answer Const General: cooperative, healthy appearing, comfortable and no acute distress Orientation/consciousness: patient oriented x3 HENMT Head: Yes normocephalic Ears: hearing grossly normal bilaterally General nose exam: Normal external nose present Eyes General: appearance normal, both eyes and all related structures Conjunctivae: conjunctivae normal Neck Neck: Yes full ROM and Yes no lymphadenopathy Thyroid: lateral enlargement and multiple palpable nodules bilaterally Resp Effort & Inspection: normal respiratory effort Auscultation: clear to auscultation bilaterally, no crackles, no rales, no rhonchi and no wheezes Cardio Rate: regular rate Rhythm: regular rhythm Heart sounds: S1 normal heart sound present, S2 normal heart sound present, no gallops and no murmurs GI Palpation (GI): Soft to palpation and nontender Auscultation: normal bowel sounds Skin Rashes: rashes noted (Fungal rash bilateral groin) Neuro General: patient oriented x3 Gait exam (Neuro): Normal gait present Extrem General: Yes normal to inspection, Yes full ROM and No edema Psych Affect: normal affect Attitude: cooperative Insight: Good insight present (Psych) Judgement: Good judgement present (Psych) Coding Level of Care Code Est Pt Level 3 (88192) Diagnoses Multinodular goiter (nontoxic) E04.2 Tinea cruris B35.6 Time Spent (min) 34 Assessment & Plan Assessment & Plan (1) Multinodular goiter (nontoxic): Code(s): E04.2 - Nontoxic multinodular goiter Category: Medical Plan: Thyroid mass for over 5 years that has been growing, she has shortness of breath when lays flat, no change in voice Ultrasound on 04/18/2024 showed left lobe and thyroid isthmus heterogeneously enlarged, right thyroid with a 5 x 5 x 6 mm nodule TI-RADS 3, right lower pole with 1.2 x 1.1 x 1 cm nodule TI-RADS 6, no lymphadenopathy. She was seen on 05/05/[address] Wolfe who noted the enlarged thyroid goiter in ordered a CT of the neck with contrast. Dr. Wolfe also refer the patient to ENT for thyroidectomy The patient was seen at [facility]; she was evaluated by Adrienne Chance MD, Office : [phone]. Patient reports that she was scheduled for surgery in June and she missed the appointment. Reports that since she has been having trouble with rescheduling. Appears that the patient is having some language barrier and is having issues making this appointment. She requested if we could make the appt for her and call her with the appt date. Will staff called the number that she was given to see if this could be done. (2) Tinea cruris: Code(s): B35.6 - Tinea cruris Category: Medical Plan: Ongoing groin fungal rash Ketoconazole 2% topical b.i.d. was ordered on previous visit Patient reports that she had trouble getting this from the pharmacy and had the pharmacy called the office number but no one picked up The medication was recent to the pharmacy Medications: Refilled ketoconazole 2% apply to groin area BID 1 appl topical BID 30 grams 2RF 30 days B35.6 - Tinea cruris
[2024-09-05 14:25] VITALS: BP 126/90; PULSE 91; TEMP 36.9; O2SAT 98; BMI 32.2
== END 2024-09-05 15:15 | disposition home or self-care (01) ==
LOC: HO.HMCH 14:21
DX: E04.2 Nontoxic multinodular goiter (principal); B35.6 Tinea cruris

== ENCOUNTER → 2024-09-05 14:20 | Outpatient (BNVA) | payer OTHER, SELFPAY | DX: E04.2 Nontoxic multinodular goiter (principal); B35.6 Tinea cruris | CPT/HCPCS: 99212 ==

== ENCOUNTER 2024-10-07 10:11 | Outpatient (AMB) | payer OTHER, SELFPAY ==
[2024-10-07 10:14] VITALS: BP 100/68; PULSE 105; O2SAT 98; BMI 32.7
--- NOTE | 2024-10-07 10:14 | A.OFFVIS_ITS ---
Vital Signs 10/07/24 10:14 Height 5 ft 11 in Weight 234 lb 2.095 oz BMI 32.7 BP 100/68 Blood Pressure Location Lt brachial Position Sitting Pulse 105 H Pulse Source Pulse Oximeter Pulse Oximetry (%) 98 Oxygen Delivery Method Room Air Intake Visit Reasons: Nontoxic Goiter Intake Note: Patient present today for Nontoxic Goiter office visit. Mathematics Education Professor Required: Yes Mathematics Education Professor Services: Mathematics Education Professor Present Mathematics Education Professor Name: Jovi [id number] Information Interpreted: non-clinical & clinical Accompanied by: Self / Same As Patient Allergies No Known Allergies Allergy (Verified 10/07/24 10:20) Medication List - Last Reconciled 10/07/24 by Korteny Wolfe MD ketoconazole 2% 1 appl topical BID HPI Comments Details: 29-year-old female here today for follow up of large goiter. HPI Ultrasound thyroid April 2024, I reviewed the images myself which showed right lower 1.2 cm solid, isoechoic nodule, all of the isthmus and left thyroid is taken up by large goiter. Very unclear with her history , she wasnt following an crm dynamics developer before, says at some point in [place] 5 years ago somebody evaluate her at her thyroid and told her that it was growing. thinks most of the enlargement happened over the last 5 years. Reports trouble breathing when she lays down flat. Does report choking sensation with laying flat. No changes in voice. Patient currently denies heat or cold intolerance, diarrhea or constipation, hair loss, palpitation, anxiety, weight changes, mood changes, low energy, changes in appearance of eyes or vision changes, tremors, increased diaphoresis or dry skin. ? Patient denies any history of childhood neck radiation. Denies having ever used lithium, amiodarone or biotin supplements. Patient denies any family history of thyroid cancer or thyroid disease. Normal TSH from February 2024. Interval history 08/04/2024 06/09/2024: Saw Dr. Chance at [facility] in [place], for surgical evaluation where he recommended surgical management for this goiter but prior to that he ordered a right inferior 1.2 cm nodule biopsy as well as a CT neck. 07/03/2024: CT soft tissue neck with and without contrast showed a large heterogenous mass of the central portion of the thyroid measuring 6.7 X8.7 X6.7 cm in size, additional small hypodense lesions of the thyroid gland. Mild compression of the central airway by the mass. Mass effect to the lateral structures of the neck including the carotid at reason jugular veins. Prominent bilateral cervical lymph nodes. Including right level 2A, 1 X1.4 cm. There is a midline soft tissue nodule of the tongue base in the area of the thyroglossal duct measuring 0.8 X1.1 cm. Interval history 10/07/[address] Chance on Oct 20 and then Oct 22 , unclear if it is a biopsy appointment but patient knows where to go she knows the addressed Denies any compressive symptoms today. She forgot to do the blood work prior to this appointment Physical exam General: sitting comfortably in no acute distress HEENT: normocephalic/atraumatic Neck: large goiter , pembertons sign positive Cardiac: normal heart sounds Pulm: normal breath sounds B/L, no added breath sounds Abd: not distended, no tenderness Extremities: no edema, no signs of myxedema Laboratory Tests 03/05/24 10:14 TSH 2.69 Free T4 0.99 US THYROID 04/18/24 CLINICAL INFORMATION: Nontoxic goiter COMPARISON: None available. TECHNIQUE: Linear transducer grayscale and color Doppler examination with attention to the region of the thyroid. FINDINGS: SIZE: Measurements of the thyroid lobes and nodules are given in sagittal, anteroposterior and transverse dimensions respectively. Right Thyroid Lobe: 6122.6 x 1.9 cm, volume 16 mL. Parenchyma: The gland echotexture is heterogeneous. Thyroid vascularity is hypervascular. Left Thyroid Lobe: The left lobe and isthmus is enlarged and difficult to differentiate the 2. There is diffusely heterogeneous as well. Estimated total number of nodules greater than or equal to 1 cm one: . Frame Builder nodules are described as follows: 1. Location: Right mid pole. Size: 0.5 x 0.5 x 0.6 cm, volume 0.076 mL. Nodule characteristics: Composition: Mixed cystic and solid (1). Echogenicity: Hyperechoic (1). Shape: Wider Margins: Smooth (0). Echogenic Foci: None (0). ACR TI-RADS total points: 3 ACR TI-RADS category: 3 2. Location: Right lower pole. Size: 1.2 x 1.1 x 1.0 cm, volume 0.7 mL. Nodule characteristics: Composition: Solid (2). Echogenicity: Isoechoic (1). Shape: Tolerated and wider 1). Margins: Smooth (0). Echogenic Foci: None (0). ACR TI-RADS total points: 6 ACR TI-RADS category: 4 NODES: No lymphadenopathy is seen in the tissue surrounding the thyroid gland. US/US thyroid IMPRESSION: Enlarged heterogeneous thyroid gland consistent with goiter. The left thyroid lobe and isthmus cannot be or measured but enlarged. There are nodules in the right lobe. The lower pole nodule is solid and mildly suspicious based on ACR TI-RADS category. Recommend ultrasound follow-up in one year CLINICAL HISTORY: E04.9 - Nontoxic goiter, unspecified --- Additional Notes or Special Instructions: has large goiter with compressive symptoms 07/03/24 CT soft tissue neck with and without contrast Comparison: None Findings: The visualized intracranial contents are unremarkable. Pharyngeal mucosal space, parapharyngeal fat, prevertebral tissues, and epiglottis are within normal limits. Salivary glands are unremarkable. No sialoliths. Large heterogeneous mass of the central portion of the thyroid gland measures 6.7 x 8.7 x 6.7 cm in size. Additional small hypodense lesions of the thyroid gland. There is mild compression of the central airway by the mass. There is mass effect to the lateral structures of the neck including the carotid arteries and jugular veins. There are prominent bilateral cervical lymph nodes: Right level 2A 1 x 1.4 cm. There is a midline soft tissue nodule of the tongue base in the area of thyroglossal duct measuring 0.8 x 1.1 cm series 7, image 66. No consolidation at the lung apices. No acute fractures. IMPRESSION: Large heterogeneous mass of the thyroid gland with mass effect. Correlation with thyroid ultrasound and nuclear medicine thyroid scan are recommended. There is a soft tissue nodule of the tongue base in the area of the thyroglossal duct. Nonspecific bilateral cervical lymph nodes. This document has been electronically signed by: Richie Hernández MD on 07/03/2024 14:02:49 [facility] Medical History Multinodular goiter (nontoxic) section wound seroma, Surgical History History of 2 sections Social History Housing: Apartment Are you a primary patient care manager to a significant other at home: No Do you presently have visiting nurse or other home services: No Patient Tobacco Use Status: Never used Tobacco e-Cigarette/Vaping Use: Never Used Second Hand Smoke Exposure: No service: No Current occupational status: unemployed Current occupational exposures/hazards: No Cognitive needs: No Hearing needs: No Vision needs: No Assessment & Plan Assessment & Plan (1) Goiter: Code(s): E04.9 - Nontoxic goiter, unspecified Category: Medical Plan: 29-year-old female here today for follow up of large goiter. Ultrasound thyroid April 2024, I reviewed the images myself which showed right lower 1.2 cm solid, isoechoic nodule, all of the isthmus and left thyroid is taken up by large goiter. She has compressive symptoms with significant choking and trouble breathing when she lays down flat. Also has positive [place] sign on exam today. She is not a very good historian, also there is a language barrier however she feels most of the enlargement happened over the last 5 years. 06/09/2024: Saw Dr. Chance at [facility] in [place], for surgical evaluation where he recommended surgical management for this goiter but prior to that he ordered a right inferior 1.2 cm nodule biopsy as well as a CT neck. She still has not had her follow up with Dr. Ty aleman after she missed her appointment in June 2024, but says she has a appointments in October 20 and with them. 07/03/2024: CT soft tissue neck with and without contrast showed a large heterogenous mass of the central portion of the thyroid measuring 6.7 X8.7 X6.7 cm in size, additional small hypodense lesions of the thyroid gland. Mild compression of the central airway by the mass. Mass effect to the lateral structures of the neck including the carotid at reason jugular veins. Prominent bilateral cervical lymph nodes. Including right level 2A, 1 X1.4 cm. There is a midline soft tissue nodule of the tongue base in the area of the thyroglossal duct measuring 0.8 X1.1 cm. At this time she denies any trouble breathing except when she lifts flat. I discussed with her compressive symptoms on the neck and went to report to the emergency room. At this time she will be following up with [facility] for her biopsy and surgical management. Post surgery she will need follow up with me. At this time we will put her on the schedule for 2 months because I am not sure when her follow up with [facility] we will be. But I told her to let us know if she has a surgical date and we can move her appointment accordingly. Plan: -follow up for surgical evaluation at [facility] -follow up in 2 months with me -reminded her to do TSH and free T4 (2) Multinodular goiter (nontoxic): Code(s): E04.2 - Nontoxic multinodular goiter Category: Medical Plan: See above Plan See above Coding Level of Care Code Est Pt Level 3 (30987) Diagnoses Goiter E04.9 Multinodular goiter (nontoxic) E04.2
== END 2024-10-07 10:31 | disposition home or self-care (01) ==
LOC: HO.ENCR 10:14
PROVIDERS: Visit Provider Student in an Organized Health Care Education/Training Program
DX: E04.9 Nontoxic goiter, unspecified (principal); E04.2 Nontoxic multinodular goiter
CPT/HCPCS: 99213

== ENCOUNTER → 2024-10-07 10:11 | Outpatient (BNVA) | payer OTHER, SELFPAY | PROVIDERS: Visit Provider Student in an Organized Health Care Education/Training Program | DX: E04.9 Nontoxic goiter, unspecified (principal); E04.2 Nontoxic multinodular goiter | CPT/HCPCS: 99212 ==

== ENCOUNTER 2024-12-09 15:39 | Outpatient (AMB) | payer OTHER, SELFPAY ==
[2024-12-09 15:42] VITALS: BP 118/80; PULSE 88; RESP 18; TEMP 36.3; O2SAT 98; BMI 32.5
--- NOTE | 2024-12-09 15:42 | A.OFFPC_ITS ---
Vital Signs 12/09/24 15:42 Height 5 ft 11 in Weight 233 lb 6 oz BMI 32.5 BP 118/80 Blood Pressure Location Lt brachial Position Sitting Respiration 18 Pulse 88 Pulse Source Pulse Oximeter Temp 97.3 F Temp Source Temporal Artery Scan Pulse Oximetry (%) 98 Oxygen Delivery Method Room Air Intake Visit Reasons: goiter Tunnel Mucker Required: No Accompanied by: Self / Same As Patient Allergies No Known Allergies Allergy (Verified 12/09/24 15:57) Medication List - Last Reconciled 12/09/24 by AMBERLY Concepcion ketoconazole 2% 1 appl topical BID Tobacco use date assessed: 12/09/24 Dental Screening Dental Screen Date: 12/09/24 Did you have a dental visit in the last 12 months?: Yes Did you have a dental problem in the last 6 months where you did not have access to dental care?: No Was dental information given to patient?: Patient has dentist HPI goiter HPI Details The patient reports that she was called this morning for [place] for her to go to [facility] for a test. They are going to call her again to give her the appt for this test. Biopsy was done in [place] and they are waiting for her consent to do the surgery. The patient reports that she was given an appoint for April but she would like to get this done sooner if she can. The patient reports that she is having difficulty breathing when she lay on her back with her head up; she has to lie on her side on her stomach for relief. The patient is a 29-year-old female presenting for follow-up on her thyroid goiter. She has been evaluated by specialists in [place] and underwent a neck biopsy, which revealed a thyroid condition requiring surgery. She was offered a surgery date in April, but expressed that it is too far out and wants to have the procedure sooner as she is currently not working due to her condition. The patient reports experiencing dizziness and difficulty breathing, which is more pronounced when she is lying down. She has also noticed weight gain and feels the mass in her neck has gotten bigger, which she believes contributes to her dyspnea. For comfort while sleeping, she lies on her side or stomach, as lying on her back with her head elevated causes discomfort. She states that she has a pending a preoperative imaging at [facility] and is waiting for them to call to schedule the appointment. Her endocrinology ynes ointment originally scheduled for the has been rescheduled to January 13. [facility] Medical History Multinodular goiter (nontoxic) section wound seroma, Surgical History History of 2 sections Social History Housing: Apartment Are you a primary manager home healthcare to a significant other at home: No Do you presently have visiting nurse or other home services: No Patient Tobacco Use Status: Never used Tobacco e-Cigarette/Vaping Use: Never Used Second Hand Smoke Exposure: No service: No Current occupational status: unemployed Current occupational exposures/hazards: No Cognitive needs: No Hearing needs: No Vision needs: No Questionnaire PHQ-9 Over the last 2 weeks, how often have you been bothered by any of the following problems? Depression Screening Interpretation: Negative Depression Screening Done: Yes Source: Developed by Drs. Low Draper, Ann Newsome, Te Dugan and colleagues, with an educational jim from [employer]. Thrive Questionnaire Date Thrive assessed: 03/05/24 I am a: Patient What is your living situation today?: I have a steady place to live Within the past 12 months, did the food you bought not last and you didn't have the money to get more?: I choose not to answer this question Within the past 12 months, did you worry whether your food would run out before you got money to buy more?: I choose not to answer this question Do you have trouble paying for medicines?: I choose not to answer this question Do you have trouble getting transportation to medical appointments?: I choose not to answer this question Do you have trouble paying your heating and electricity bill?: I choose not to answer this question Do you have trouble taking care of your child, family member or friend?: I choose not to answer this question Do you have trouble with day-to-day activities such as bathing, preparing meals, shopping, managing finances, etc.?: I choose not to answer this question Are you currently unemployed and looking for a job?: I choose not to answer this question Are you interested in more education?: I choose not to answer this question Please select the resources that you would like help with: None Currently or been in a relationship where the following occur: I choose not to answer THRIVE Score: 0 SHEILA-7 AMB Questionnaire SHEILA-7 Date SHEILA - 7 assessed: 09/05/24 Source: Developed by Drs. Low Draper, Ann Newsome, Te Dugan and colleagues, with an educational jim from [employer]. Review of Systems Const Denies body aches, Denies chills, Denies fever(s), Denies headache(s) and Denies poor appetite Eyes Reports no additional complaints ENT Denies dysphagia, Denies dizziness, Denies headache(s), Reports neck mass and Denies odynophagia Card Denies chest pain, Denies syncope, Denies edema, Denies irregular heart rhythm, Denies lightheadedness, Denies dyspnea and Reports orthopnea Resp Denies cough and Denies dyspnea GI Denies abdominal pain, Denies constipation, Denies dysphagia, Denies diarrhea, Denies nausea, Denies odynophagia and Denies vomiting Reports no additional complaints Musc Reports no additional complaints and Denies abnormal gait Skin/Breast Reports rash (rash in groin region) Neuro Denies abnormal gait, Denies dizziness, Denies syncope and Denies headache(s) Psych Reports no additional complaints Physical exam (Primary Care) Vital Signs: Last Vital Signs Temp 97.3 F 12/09/24 15:42 Pulse 88 12/09/24 15:42 Resp 18 12/09/24 15:42 BP 118/80 12/09/24 15:42 Pulse Ox 98 12/09/24 15:42 Oxygen Delivery Method Room Air 12/09/24 15:42 BMI result Body Mass Index 32.5 Tobacco/Smoking Status: Tobacco use Status Tobacco use date assessed 12/09/24 12/09/24 15:53 Patient Tobacco Use Status Never used Tobacco 12/09/24 15:53 e-Cigarette/Vaping Use Never Used 12/09/24 15:53 Depression Screening Interpretation: Negative Thrive Assessment: Date of Thrive Assessment Date Thrive assessed 03/05/24 12/09/24 15:53 Currently or been in a relationship where the following occur: I choose not to answer Const General: cooperative, healthy appearing, comfortable and no acute distress Orientation/consciousness: patient oriented x3 [facility] Head: Yes normocephalic Ears: hearing grossly normal bilaterally General nose exam: Normal external nose present Eyes General: appearance normal, both eyes and all related structures Conjunctivae: conjunctivae normal Neck Neck: Yes full ROM and Yes no lymphadenopathy Thyroid: lateral enlargement and multiple palpable nodules bilaterally Resp Effort & Inspection: normal respiratory effort Auscultation: clear to auscultation bilaterally, no crackles, no rales, no rhonchi and no wheezes Cardio Rate: regular rate Rhythm: regular rhythm Heart sounds: S1 normal heart sound present, S2 normal heart sound present, no gallops and no murmurs GI Palpation (GI): Soft to palpation and nontender Auscultation: normal bowel sounds Skin Rashes: rashes noted (Fungal rash bilateral groin) Neuro General: patient oriented x3 Gait exam (Neuro): Normal gait present Extrem General: Yes normal to inspection, Yes full ROM and No edema Psych Affect: normal affect Attitude: cooperative Insight: Good insight present (Psych) Judgement: Good judgement present (Psych) Coding Level of Care Code Est Pt Level 3 (77005) Diagnoses Multinodular goiter (nontoxic) E04.2 Dyspnea, unspecified type R06.00 Dyspnea type: unspecified Time Spent (min) 34 Assessment & Plan Assessment & Plan (1) Multinodular goiter (nontoxic): Code(s): E04.2 - Nontoxic multinodular goiter Category: Medical Plan: Thyroid mass for over 5 years that has been growing, she has shortness of breath when lays flat, no change in voice Ultrasound on 04/18/2024 showed left lobe and thyroid isthmus heterogeneously enlarged, right thyroid with a 5 x 5 x 6 mm nodule TI-RADS 3, right lower pole with 1.2 x 1.1 x 1 cm nodule TI-RADS 6, no lymphadenopathy. She was seen on 05/05/[address] Wolfe who noted the enlarged thyroid goiter in ordered a CT of the neck with contrast. Dr. Wolfe also refer the patient to ENT for thyroidectomy The patient was seen at [facility]; she was evaluated by Adrienne Chance MD, Office : [phone]. Patient reports that she was scheduled for surgery in June and she missed the appointment. Reports that since she has been having trouble with rescheduling. Appears that the patient is having some language barrier and is having issues making this appointment. She requested if we could make the appt for her and call her with the appt date. Staff called and obtained information for the the patient and she was reconnected with the providers at [facility]. Today visit: The patient's dyspnea is likely secondary to obstruction from her thyroid mass. Surgery is the definitive treatment. A preoperative imaging/exam must be com pleted at [facility], and the patient is waiting for them to call to schedule. The staff will contact the specialists in [place] for more information and to inquire about getting the patient on a waiting list for an earlier surgery date. The patient has a rescheduled follow-up appointment with endocrinology on January 13. A follow-up visit is scheduled in February. (2) Dyspnea: Code(s): R06.00 - Dyspnea, unspecified Category: Medical Qualifiers: Dyspnea type: unspecified Qualified Code(s): R06.00 - Dyspnea, unspecified Plan: The patient's dyspnea is attributed to obstruction from the thyroid mass. It was recommended to use pillows to elevate her head while sleeping, though the patient noted this position causes her discomfort and she prefers sleeping on her side or stomach. Definitive treatment is surgical removal of the mass.
== END 2024-12-09 16:23 | disposition home or self-care (01) ==
LOC: HO.HMCH 15:40
DX: E04.2 Nontoxic multinodular goiter (principal); R06.00 Dyspnea, unspecified

== ENCOUNTER → 2024-12-09 15:39 | Outpatient (BNVA) | payer OTHER, SELFPAY | DX: R42 Dizziness and giddiness (principal); E04.2 Nontoxic multinodular goiter; R06.00 Dyspnea, unspecified | CPT/HCPCS: 99212 ==